=== PATIENT | female | born 1985 | race American Indian/Alaskan Native ===

== ENCOUNTER 2016-09-20 11:47 | Emergency (ER) | payer MEDICAID ==
[2016-09-20 12:04] VITALS: BP 123/80
== END 2016-09-20 17:10 | disposition left against medical advice (07) ==
LOC: ED 11:47
DX: R50.9 Fever, unspecified (principal); Z53.21 Procedure and treatment not carried out due to patient leaving prior to being seen by health care provider

== ENCOUNTER 2017-09-25 19:00 | Emergency (ER) | payer MEDICAID, OTHER ==
[2017-09-25 20:24] LABS: Alanine Aminotransferase 9 units/L (7-56); Albumin 4.4 g/dL (3.9-5); BUN/Creatinine Ratio 14; Blood Urea Nitrogen 13 mg/dL (7-17); Calcium 10.2 mg/dL (8.4-10.2); Hemolysis Index 27
[2017-09-25 21:10] LABS: Bilirubin,Urine NEG (Negative); Blood,Urine LG (Negative); Color,Urine Yellow (Yellow); Mucus,Urine FEW /HPF; Protein,Urine <15 mg/dL mg/dL (Negative); Urobilinogen,Urine < 2.0 mg/dL (<2.0)
[2017-09-25 21:18] LABS: Amphetamine Screen,Urine PRESUMPTIVE NEGATIVE; Cannabinoid Screen,Urine PRESUMPTIVE NEGATIVE; Methadone Screen,Urine PRESUMPTIVE NEGATIVE; Opiate Screen,Urine PRESUMPTIVE NEGATIVE
[2017-09-25 21:25] LABS: Hematocrit 44.1 % (30.3-42.9); Hemoglobin 14.6 gm/dl (10.1-14.3); Mean Corpuscular HGB Conc 33 % (30-34); Mean Corpuscular Hemoglobin 29 pg (28-32); Mean Corpuscular Volume 89 fl (79-97); Platelet Count 271 K/mm3 (140-440); Red Blood Count 4.95 M/mm3 (3.65-5.03); Red Cell Distribution Width 14.3 % (13.2-15.2)
--- NOTE | 2017-09-25 21:28 | Emergency Department Report ---
HPI - General Chief Complaint: Psych Time Seen by Provider: 09/25/17 21:02 - HPI HPI: Sosa [id number] The patient is a 31-year-old female presented with a chief complaint of suicidal ideation. The patient states she's had suicidal ideation for "a couple of weeks." The patient states "a couple days" ago she tried to kill himself by taking more than her usual amount of cocaine. Patient denies any other attempts at harming herself. Patient states she has a headache and feels anxious. Patient denies any history of fever Location: Mental state, see above Duration: "A couple of weeks" Quality: Suicidal Severity: Severe Modifying factors: [see above] Context: [see above] Mode of transportation: [not driving] ED Past Medical Hx - Past Medical History Hx Headaches / Migraines: Yes (migraines after epidural with del 01/18/15) Hx Psychiatric Treatment: Yes (depression) - Surgical History Additional Surgical History: Abdominal laparoscopy, tubal ligation - Family History Family history: no significant - Social History Smoking Status: Never Smoker Substance Use Type: Alcohol (occasional), Cocaine (last used yesterday) - Medications Home Medications: Home Medications Medication Instructions Recorded Confirmed Last Taken Type Cephalexin [Keflex] 500 mg PO Q12HR #20 cap 11/28/14 Unknown Rx Pnv,Calcium 72/Iron,Carb/Folic 1 PO DAILY 11/28/14 11/28/14 1 Week Ago History [ Plus Iron Tablet] ~11/21/14 1 Zolpidem [Ambien] 1 PO HS PRN 11/28/14 11/28/14 2 Days Ago History ~11/26/14 10 mgs Pnv,Calcium 72/Iron,Carb/Folic 1 tab PO DAILY 02/22/15 02/22/15 Unknown History [ Plus Iron Tablet] Zolpidem [Ambien] 10 mg PO QHS 02/22/15 02/22/15 Unknown History Ibuprofen [Motrin] 600 mg PO Q6H PRN #30 tablet 02/27/15 Unknown Rx oxyCODONE /ACETAMINOPHEN [Percocet 1 tab PO Q6HR PRN #30 tablet 02/27/15 Unknown Rx 5/325] ED Review of Systems ROS: Stated complaint: DEPRESSION SUICDIAL Other details as noted in HPI Constitutional: denies: fever Eyes: denies: eye pain ENT: denies: throat pain Cardiovascular: denies: chest pain Endocrine: denies: unexplained weight loss Gastrointestinal: denies: abdominal pain Genitourinary: denies: dysuria Musculoskeletal: denies: back pain Skin: denies: change in color Neurological: headache Psychiatric: suicidal thoughts Physical Exam - Physical Exam Vital Signs: Vital Signs 09/25/17 09/25/17 19:14 19:22 Temperature 99.0 F 99.0 F Pulse Rate 62 69 Respiratory 18 18 Rate Blood Pressure 153/99 153/99 O2 Sat by Pulse 100 100 Oximetry Physical Exam: GENERAL: The patient is well-developed well-nourished female sitting on stretcher not appearing to be in acute distress. [] HEENT: Normocephalic. Atraumatic. Extraocular motions are intact. Patient has moist mucous membranes. NECK: Supple. No meningitic signs are noted. There is no adenopathy noted. CHEST/LUNGS: Clear to auscultation. There is no respiratory distress noted. HEART/CARDIOVASCULAR: Regular. There is no tachycardia. There is no gallop rub or murmur. ABDOMEN: Abdomen is soft, nontender. Patient has normal bowel sounds. There is no abdominal distention. SKIN: There is no rash. There is no edema. There is no diaphoresis. NEURO: The patient is awake, alert, and oriented. The patient is cooperative. The patient has no focal neurologic deficits. The patient has normal speech. Cranial nerves II through XII grossly intact, no drift MUSCULOSKELETAL: There is no evidence of acute injury. ED Course Vital Signs 09/25/17 09/25/17 19:14 19:22 Temperature 99.0 F 99.0 F Pulse Rate 62 69 Respiratory 18 18 Rate Blood Pressure 153/99 153/99 O2 Sat by Pulse 100 100 Oximetry ED Medical Decision Making - Lab Data Result diagrams: 09/25/17 21:08 09/25/17 21:08 Laboratory Tests 09/25/17 09/25/17 09/25/17 19:50 20:50 20:50 WBC RBC Hgb Hct MCV MCH MCHC RDW Plt Count Lymph % (Auto) [place] % (Auto) Eos % (Auto) Baso % (Auto) Lymph # [place] # Eos # Baso # Seg Neutrophils % Seg Neutrophils # Sodium 138 Potassium 4.3 Chloride 95.9 L Carbon Dioxide 25 Anion Gap 21 BUN 13 Creatinine 0.9 Estimated GFR > 60 BUN/Creatinine Ratio 14 Glucose 110 H Calcium 10.2 Total Bilirubin 0.40 AST 18 ALT 9 Alkaline Phosphatase 60 Total Protein 8.3 H Albumin 4.4 Albumin/Globulin Ratio 1.1 HCG, Qual Urine Color Yellow Urine Turbidity Clear Urine pH 6.0 Ur Specific [place] 1.019 Urine Protein <15 mg/dl Urine Glucose (UA) Neg Urine Ketones Neg Urine Blood Lg Urine Nitrite Neg Urine Bilirubin Neg Urine Urobilinogen < 2.0 Ur Leukocyte Esterase Neg Urine WBC (Auto) 5.0 Urine RBC (Auto) 46.0 U Epithel Cells (Auto) 1.0 Urine Mucus Few Salicylates Urine Opiates Screen Presumptive negative Urine Methadone Screen Presumptive negative Acetaminophen Ur Barbiturates Screen Presumptive negative Ur Phencyclidine Scrn Presumptive negative Ur Amphetamines Screen Presumptive negative U Benzodiazepines Scrn Presumptive positive Urine Cocaine Screen Presumptive positive U Marijuana (THC) Screen Presumptive negative Drugs of Abuse Note Disclamer Plasma/Serum Alcohol 09/25/17 09/25/17 09/25/17 21:08 21:08 21:08 WBC 9.6 RBC 4.95 Hgb 14.6 H Hct 44.1 H MCV 89 MCH 29 MCHC 33 RDW 14.3 Plt Count 271 Lymph % (Auto) [employer] [place] % (Auto) [employer] Eos % (Auto) [employer] Baso % (Auto) [employer] Lymph # [employer] [place] # [employer] Eos # [employer] Baso # [employer] Seg Neutrophils % [employer] Seg Neutrophils # [employer] Sodium 139 Potassium 3.9 Chloride 94.8 L Carbon Dioxide 29 Anion Gap 19 BUN 13 Creatinine 0.9 Estimated GFR > 60 BUN/Creatinine Ratio 14 Glucose 100 Calcium 10.1 Total Bilirubin AST ALT Alkaline Phosphatase Total Protein Albumin Albumin/Globulin Ratio HCG, Qual Urine Color Urine Turbidity Urine pH Ur Specific [place] Urine Protein Urine Glucose (UA) Urine Ketones Urine Blood Urine Nitrite Urine Bilirubin Urine Urobilinogen Ur Leukocyte Esterase Urine WBC (Auto) Urine RBC (Auto) U Epithel Cells (Auto) Urine Mucus Salicylates < 0.3 L Urine Opiates Screen Urine Methadone Screen Acetaminophen Ur Barbiturates Screen Ur Phencyclidine Scrn Ur Amphetamines Screen U Benzodiazepines Scrn Urine Cocaine Screen U Marijuana (THC) Screen Drugs of Abuse Note Plasma/Serum Alcohol 09/25/17 09/25/17 09/25/17 21:08 21:08 21:08 WBC RBC Hgb Hct MCV MCH MCHC RDW Plt Count Lymph % (Auto) [place] % (Auto) Eos % (Auto) Baso % (Auto) Lymph # [place] # Eos # Baso # Seg Neutrophils % Seg Neutrophils # Sodium Potassium Chloride Carbon Dioxide Anion Gap BUN Creatinine Estimated GFR BUN/Creatinine Ratio Glucose Calcium Total Bilirubin AST ALT Alkaline Phosphatase Total Protein Albumin Albumin/Globulin Ratio HCG, Qual Negative Urine Color Urine Turbidity Urine pH Ur Specific [place] Urine Protein Urine Glucose (UA) Urine Ketones Urine Blood Urine Nitrite Urine Bilirubin Urine Urobilinogen Ur Leukocyte Esterase Urine WBC (Auto) Urine RBC (Auto) U Epithel Cells (Auto) Urine Mucus Salicylates Urine Opiates Screen Urine Methadone Screen Acetaminophen < 5.0 L Ur Barbiturates Screen Ur Phencyclidine Scrn Ur Amphetamines Screen U Benzodiazepines Scrn Urine Cocaine Screen U Marijuana (THC) Screen Drugs of Abuse Note Plasma/Serum Alcohol < 0.01 - Differential Diagnosis suicidal ideation, cocaine abuse Critical care attestation.: If time is entered above; I have spent that time in minutes in the direct care of this critically ill patient, excluding procedure time. ED Disposition Clinical Impression: Suicidal ideation, Cocaine abuse Disposition: [id number]/TX-[id number] PSY HOSP/PSY UNIT Is pt being admited?: No Does the pt Need Aspirin: No Condition: Serious Referrals: LISA HDZ MD [Primary Care Provider] - 3-5 Days Time of Disposition: 22:29 (awaiting acceptance)
[2017-09-25 21:38] LABS: BUN/Creatinine Ratio 14; Blood Urea Nitrogen 13 mg/dL (7-17); Calcium 10.1 mg/dL (8.4-10.2); Hemolysis Index 10
[2017-09-25 22:07] LABS: Benzodiazepines Screen,Urine PRESUMPTIVE POSITIVE; Cocaine Screen,Urine PRESUMPTIVE POSITIVE
[2017-09-25] MEDS ORDERED: FIORICET PO ONE (22:30)
[2017-09-26] MEDS ORDERED: ATIVAN IM ONE (03:35)
[2017-09-26] MEDS ORDERED: ATIVAN ONE ×2 (03:36→22:40)
[2017-09-26] MEDS ORDERED: ATIVAN PO ONE (21:00)
--- NOTE | 2017-09-26 23:56 | Consultation ---
History of Present Illness - Reason for Consult Consult date: 09/26/17 Reason for consult: psychiatric evaluation - Chief Complaint Chief complaint: "I am withdrawing from suboxone." - History of Present Psychiatric Illness Jennifer Cobb is a 31-year-old female presented with a chief complaint of suicidal ideation. Per the record, the patient states she's had suicidal ideation for "a couple of weeks." The patient states "a couple days" ago she tried to kill himself by taking more than her usual amount of cocaine. She denies suicidal ideation during the psychiatric evaluation. She denies mood or psychotic symptoms. She reports taking xanax 1mg daily prn for anxiety. She states she has panic attacks. She reports having opiate withdrawals due to coming off suboxone. She states she takes 8mg daily. She was at [facility] 2 weeks ago and left to make sure her children were with her mother. She states 40 family/friends had an intervention for her prior to going to [facility]. She was vague in saying why they would hold an intervention for her. The drug monitoring database indicates she has been on suboxone and xanax for at least a year. She denies using other substances with the exception of telling the staff she used cocaine. She denies use of cocaine on interview. She states the intervention was done because they saw she was using but had been doing well for a long time prior. Medications and Allergies Allergies Allergy/AdvReac Type Severity Reaction Status Date / Time No Known Allergies Allergy Verified 09/25/17 19:22 Home Medications Medication Instructions Recorded Confirmed Last Taken Type Cephalexin [Keflex] 500 mg PO Q12HR #20 cap 11/28/14 09/26/17 Unknown Rx Pnv,Calcium 72/Iron,Carb/Folic 1 mg PO DAILY 11/28/14 09/26/17 1 Week Ago History [ Plus Iron Tablet] ~11/21/14 1 Zolpidem [Ambien] 10 mg PO HS PRN 11/28/14 09/26/17 2 Days Ago History ~11/26/14 10 mgs Pnv,Calcium 72/Iron,Carb/Folic 29 mg PO DAILY 02/22/15 09/26/17 Unknown History [ Plus Iron Tablet] Zolpidem [Ambien] 10 mg PO QHS 02/22/15 09/26/17 Unknown History Ibuprofen [Motrin] 600 mg PO Q6H PRN #30 tablet 02/27/15 09/26/17 Unknown Rx oxyCODONE /ACETAMINOPHEN [Percocet 1 tab PO Q6HR PRN #30 tablet 02/27/15 Unknown Rx 5/325] Past psychiatric history - Past Medical History Past Medical History: migraines Past Surgical History: Other ( Abdominal laparoscopy, tubal ligation) - past Psychiatric treatment and history Psych: Anxiety, Addictions psychiatric treatment history: She states she was at [facility] for 2 weeks and left to make sure her children were in a stable living arrangement. They are with her mother. she reports being hospitalized previously. "I had to say I was suicidal." she denies a history of suicide attempts. She is prescribed xanax 1mg daily prn for anxiety (confirmed in the drug monitoring database) She states she takes suboxone 8mg daily. Although it appears she is buying only a few at a time from the pharmacy. She has a history of heroin addiction and then had 8 years clean. When she had a tubal ligation, she started using pain pills and is now prescribed suboxone. - Social History Social history: lives with family (with mother and children) Mental Status Exam - Vital signs Last Vital Signs Temp 98.3 F 09/26/17 10:00 Pulse 98 H 09/26/17 10:00 Resp 18 09/26/17 10:00 BP 165/100 09/26/17 10:00 Pulse Ox 100 09/26/17 10:00 - Exam Orientation: time, place, person Affect: anxious Mood: congruent with affect Thought content: other (denies SI/HI. She told the ER staff she took too much cocaine in an attempt to harm herself) Thought Process: Intact Perceptions: none Speech: normal rate and pattern Concentration: focused Motor activity: normal Level of consciousness: alert Memory: Intact Sleep Symptoms: Insomnia, Restless Appetite: decreased Interaction: cooperative Results Result Diagrams: 09/25/17 21:08 09/25/17 21:08 All other labs normal. Assessment and Plan Assessment and plan: Impression: questionable suicide attempt by using too much cocaine. opioid use disorder, prescribed suboxone 8mg daily anxiety disorder unspecified-prescribed xanax 1mg daily and states she takes it sparingly. r/o panic disorder vs. substance induced anxiety disorder Her primary complaint is opiate withdrawals: chills, abdominal cramps, body aches, diarrhea Recommendation: Continue 1013 and reevaluate to determine suicide risk in 24 hours. She would benefit from [facility] rehab. Monitor for benzo withdrawals, but IF her statement is accurate, she is at low risk of benzo withdrawals. clonidine 0.1mg bid for opioid withdrawals. monitor vital signs. ativan 2mg po x 1 dose for acute anxiety/panic attack
[2017-09-27] MEDS ORDERED: CATAPRES PO SCH (01:00)
[2017-09-27] MEDS ORDERED: ATIVAN PO ONE ×2 (08:00→14:28)
[2017-09-27] MEDS: CATAPRES PO SCH ×3 (08:34→23:00)
[2017-09-27] MEDS: ROBAXIN PO SCH ×2 (11:08→23:00)
[2017-09-27] MEDS ORDERED: ATIVAN ONE (14:25)
--- NOTE | 2017-09-27 15:00 | Progress Note ---
Subjective - Reason for Consult Consult date: 09/27/17 Reason for consult: Psychiatry Follow-up - Chief Complaint Chief complaint: "Heltor" 31-year-old female presented with a chief complaint of suicidal ideation. Per the record, the patient states she's had suicidal ideation for "a couple of weeks." Today the patient is calm and cooperative during the assessment. She is adamant that she didn't tell the triage nurse that she was suicidal. She stated that she was suicidal several weeks ago when she was asked about being suicidal. She stated that she came to ER for medical clearance so she can enter into a detox program with [facility]. She denies SI/HI's and AVH's. She stated having body aches. Mental Status Exam - Vital signs Last Vital Signs Temp 98 F 09/27/17 07:00 Pulse 84 09/27/17 08:34 Resp 16 09/27/17 07:00 BP 123/90 09/27/17 08:34 Pulse Ox 99 09/27/17 07:00 - Exam Narrative exam: MSE: Appearance: calm, cooperative Behavior: regular eye contact Speech: regular rate and tone Mood: "okay" Affect: congruent to mood Thought Process: linear Thought Content: denies SI/HI's and AVH's Motor Activity: ambulatory Cognition: A/O x 3 Insight: fair Judgment: fair Assessment and Plan Impression: Questionable suicide attempt by cocaine use. Opioid Use DO. Unspecified Anxiety DO. Today the patient is calm and cooperative during the assessment. DDx: R/O Panic Attacks, R/O Substance Induced Anxiety DO Recommendation: Reevaluate 1013 in 24 hours. I called the patient's mother no answer. Will continue to try to gather collateral to help determine proper dispo. Continue Clonidine 0.1 mg PO for opioid withdrawals and start Robaxin 500 mg PO BID for body aches. Ativan 1 mg PO once for acute anxiety.
[2017-09-28 08:13] VITALS: BP 116/83
== END 2017-09-28 08:14 ==
LOC: EEVIPCON 19:00 → ED 19:00
DX: F14.10 Cocaine abuse, uncomplicated (principal); R45.851 Suicidal ideations; G43.909 Migraine, unspecified, not intractable, without status migrainosus; F32.9 Major depressive disorder, single episode, unspecified; Z98.51 Tubal ligation status
CPT/HCPCS: 36415; 80048; 80053; 80307; 81001; 84703; 85025; 96372; 99285; G0480; J2060; 80320

== ENCOUNTER 2018-11-16 11:40 | Emergency (ER) | payer MEDICAID ==
--- NOTE | 2018-11-16 11:51 | Event Note ---
ED Screening Note Date of service: 11/16/18 Time: 11:49 ED Screening Note: 33 y o female presents to ED stating while she was in shower her right shoulder popped out of placed October 04 This initial assessment/diagnostic orders/clinical plan/treatment(s) is/are subject to change based on patients health status, clinical progression and re- assessment by fellow clinical providers in the ED. Further treatment and workup at subsequent clinical providers discretion. Patient/guardian urged not to elope from the ED as their condition may be serious if not clinically assessed and managed. Initial orders include: xr shoulder
--- NOTE | 2018-11-16 12:08 | Emergency Department Report ---
ED Upper Extremity Inj HPI - General Chief Complaint: Extremity Injury, Upper Stated Complaint: POST SURGERY RT ARM OUT OF PLACE Time Seen by Provider: 11/16/18 12:07 Source: patient Mode of arrival: Ambulatory Limitations: No Limitations - History of Present Illness Initial Comments: Patient is a 33-year-old female that presents emergency room a complaints of right shoulder pain. Patient states her shoulder pain started yesterday. Patient states her shoulder dislocated yesterday at 11 AM. Patient's last intake at 10 AM yesterday. Patient states the pain is 10 out of 10. Patient states the pain is worse with movement and better with rest. Patient states the pain is nonradiating. Patient states she's had her arm in a sling for 2 months. Patient states she had surgery October 04 of this year. MD Complaint: Injury to:: right, shoulder -: Sudden Other Extremity Injury: Shoulder: Right Other Injuries: none Severity scale (0 -10): 10 Improves With: rest Worsens With: movement of extremity Context: other Associated Symptoms: denies: weakness, numbness, neck pain, suspects foreign body, nausea/vomiting, heard/felt popping sensat Treatments Prior to Arrival: splint - Related Data Home Medications Medication Instructions Recorded Confirmed Last Taken Eszopiclone [Lunesta] 3 mg PO 11/16/18 11/02/18 Allergies Allergy/AdvReac Type Severity Reaction Status Date / Time morphine Allergy Rash Verified 11/16/18 13:17 ED Review of Systems ROS: Stated complaint: POST SURGERY RT ARM OUT OF PLACE Other details as noted in HPI Constitutional: denies: chills, fever Eyes: denies: eye pain, eye discharge, vision change ENT: denies: ear pain, throat pain Respiratory: denies: cough, shortness of breath, wheezing Cardiovascular: denies: chest pain, palpitations Endocrine: no symptoms reported Gastrointestinal: denies: abdominal pain, nausea, diarrhea Genitourinary: denies: urgency, dysuria, discharge Musculoskeletal: denies: back pain, joint swelling, arthralgia Skin: denies: rash, lesions Neurological: denies: headache, weakness, paresthesias Psychiatric: denies: anxiety, depression Hematological/Lymphatic: denies: easy bleeding, easy bruising ED Past Medical Hx - Past Medical History Previous Medical History?: Yes Hx Hypertension: No Hx Congestive Heart Failure: No Hx Diabetes: No Hx Deep Vein Thrombosis: No Hx Renal Disease: No Hx Sickle Cell Disease: No Hx Headaches / Migraines: Yes (migraines after epidural with del 01/18/15) Hx Seizures: No Hx Psychiatric Treatment: Yes (depression) Hx Asthma: No Hx COPD: No Hx HIV: No - Surgical History Additional Surgical History: Abdominal laparoscopy, tubal ligation - Social History Smoking Status: Never Smoker Substance Use Type: None - Medications Home Medications: Home Medications Medication Instructions Recorded Confirmed Last Taken Type Eszopiclone [Lunesta] 3 mg PO 11/16/18 11/02/18 History ED Physical Exam - General Limitations: No Limitations General appearance: alert, in no apparent distress - Head Head exam: Present: atraumatic, normocephalic - Eye Eye exam: Present: normal appearance - ENT ENT exam: Present: mucous membranes moist - Neck Neck exam: Present: normal inspection - Respiratory Respiratory exam: Present: normal lung sounds bilaterally. Absent: respiratory distress - Cardiovascular Cardiovascular Exam: Present: regular rate, normal rhythm. Absent: systolic murmur, diastolic murmur, rubs, gallop - GI/Abdominal GI/Abdominal exam: Present: soft, normal bowel sounds - Extremities Exam Extremities exam: Present: normal inspection (except for right upper extremity. Right shoulder clearly dislocated) - Back Exam Back exam: Present: normal inspection - Neurological Exam Neurological exam: Present: alert, oriented X3 - Psychiatric Psychiatric exam: Present: normal affect, normal mood - Skin Skin exam: Present: warm, dry, intact, normal color. Absent: rash ED Course Vital Signs 11/16/18 11/16/18 11/16/18 11:48 13:18 13:27 Temperature 98.7 F Temperature [ 98.1 F Intra-Procedure ] Temperature [ 98.2 F Pre-Procedure] Pulse Rate 116 H Pulse Rate [ 78 Intra-Procedure ] Pulse Rate [Pre 78 -Procedure] Respiratory 16 Rate Respiratory 16 Rate [Intra- Procedure] Respiratory 18 Rate [Pre- Procedure] Blood Pressure 140/102 Blood Pressure 145/103 [Intra- Procedure] Blood Pressure 144/102 [Pre-Procedure] Blood Pressure [Right] O2 Sat by Pulse 99 Oximetry O2 Sat by Pulse 96 Oximetry [ Intra-Procedure ] O2 Sat by Pulse 98 Oximetry [Pre- Procedure] 11/16/18 11/16/18 11/16/18 13:42 13:45 13:52 Temperature 98.2 F Temperature [ Intra-Procedure ] Temperature [ Pre-Procedure] Pulse Rate 78 Pulse Rate [ 77 80 Intra-Procedure ] Pulse Rate [Pre -Procedure] Respiratory 16 Rate Respiratory 16 16 Rate [Intra- Procedure] Respiratory Rate [Pre- Procedure] Blood Pressure Blood Pressure 149/58 169/98 [Intra- Procedure] Blood Pressure [Pre-Procedure] Blood Pressure 169/104 [Right] O2 Sat by Pulse 98 Oximetry O2 Sat by Pulse 96 96 Oximetry [ Intra-Procedure ] O2 Sat by Pulse Oximetry [Pre- Procedure] 11/16/18 13:59 Temperature Temperature [ Intra-Procedure ] Temperature [ Pre-Procedure] Pulse Rate 87 Pulse Rate [ Intra-Procedure ] Pulse Rate [Pre -Procedure] Respiratory 16 Rate Respiratory Rate [Intra- Procedure] Respiratory Rate [Pre- Procedure] Blood Pressure Blood Pressure [Intra- Procedure] Blood Pressure [Pre-Procedure] Blood Pressure 185/107 [Right] O2 Sat by Pulse 98 Oximetry O2 Sat by Pulse Oximetry [ Intra-Procedure ] O2 Sat by Pulse Oximetry [Pre- Procedure] - Reevaluation(s) Reevaluation #1: I discussed the procedure with patient. Patient agrees to reduction and conscious sedation. Consent has been signed. Patient's last intake was yesterday at 10 AM. 11/16/18 12:49 Reevaluation #2: Patient given conscious sedation to reduce the right shoulder. Successful reduction patient patient given 10 mg of etomidate. See procedure notes. 11/16/18 13:26 shoulder dislocated again. Patient given this time 10 more milligrams of etomidate and 25 of propofol. Patient will have an x-ray. Patient placed immediately into a sling and swath 11/16/18 13:35 Reevaluation #3: X-ray shows the shoulder is still not reduce. I will page the patient's orthopedist at [facility], Dr. Uma Huffman. 11/16/18 13:46 Reevaluation #4: I discussed all results and plan of care with patient. Patient agrees with plan of care in transfer. Patient will be transferred via EMS to [facility]. She is back to baseline. She is complaining of severe pain and muscle tightness. Patient will be given 2 mg of IM and 0.5 mg of Dilaudid 11/16/18 15:01 - Consultations Consultation #1: [facility] transfer center consulted. I discussed the case with the patient's orthopedist Dr. Uma Huffman as she states to have the patient transferred to [facility] ER. 11/16/18 13:50 After multiple conversations with the transfer center and the patient's orthopedist the patient was finally accepted to be transferred to [facility]. The accepting ER physician is Dr. Nacho Nicholson. Patient will be transported via EMS to [facility] 11/16/18 15:01 - Moderate Sedation Indications: fracture/dislocation redu ASA Class: I Mallampati Airway Score: 1 Time of Last PO Intake: 10:00 (10 am yesterday) Preparation: data modeler applied, pulse oximeter, capnometry used, supplemental O2 applied, suction/airway equipment at bedside, IV secured IV Propofol Dose (mgs): 50 IV Etomidate Dose (mgs): 20 Complications: none Patient Tolerated Procedure: well, no complications Additional Comments: Patient had 2 separate sets of medications due to shoulder dislocating after the initial reduction. Patient on the first reduction was given 10 mg of etomidate. On the second reduction patient was given 50 mg of propofol and 10 mg of etomidate - Orthopedic Joint Reduction Joint #1 Consent Obtained: verbal consent, written consent, emergent situation Time Out Performed: Yes Side: right Joint Reduction Location: shoulder Analgesia: moderate sedation Shoulder Technique Used (if applicable): traction/counter-traction, external rotation Post-Reduction Neuro Exam: intact Post-Reduction Vascular Exam: intact Post Reduction X-Ray Obtained: Yes Post Reduction X-Ray Results: reduced Splint Applied: Yes Patient Tolerated Procedure: well, no complications ED Medical Decision Making - Radiology Data Radiology results: report reviewed, image reviewed interpreted by me: Both x-rays reviewed. First x-ray shows an anterior dislocation. Post reduction x-ray shows persistent anterior dislocation. RIGHT SHOULDER 2 VIEWS INDICATION / CLINICAL INFORMATION: Right shoulder pain/deformity COMPARISON: None available. FINDINGS: BONES / JOINT(S): The humeral head is displaced anteriorly and inferomedially in relationship to the glenoid. I see no evidence of fracture. No significant arthritis. SOFT TISSUES: No significant abnormality. ADDITIONAL FINDINGS: The visualized portion the right lung is clear. IMPRESSION: Anterior dislocation of the right shoulder. RIGHT SHOULDER 2 VIEWS INDICATION / CLINICAL INFORMATION: Right shoulder pain/deformity COMPARISON: None available. FINDINGS: BONES / JOINT(S): The humeral head is displaced anteriorly and inferomedially in relationship to the glenoid. I see no evidence of fracture. No significant arthritis. SOFT TISSUES: No significant abnormality. ADDITIONAL FINDINGS: The visualized portion the right lung is clear. IMPRESSION: Anterior dislocation of the right shoulder. - Medical Decision Making Patient is 33-year-old female that has emergency room with shoulder pain. Patient found to have a anterior shoulder dislocation. Patient recently had an orthopedic surgery done to the same shoulder. Patient's shoulder unable to be reduced. Patient will be transferred back to where she had surgery at [facility]. Patient accepted by the ER doctor at [facility]. I discussed this case with the patient's orthopedist, Dr. Huffman and [facility] transfer center as well as [facility]'s ER physician multiple times. Patient will be transferred via EMS to [facility]. X-rays done. - Differential Diagnosis shoulder dislocation. Shoulder pain. Persistent shoulder dislocation Critical Care Time: Yes Critical care attestation.: If time is entered above; I have spent that time in minutes in the direct care of this critically ill patient, excluding procedure time. Critical Care Time: 80 minutes ED Disposition Clinical Impression: Intractable pain Shoulder pain, right Qualifiers: Chronicity: acute Qualified Code(s): M25.511 - Pain in right shoulder Shoulder dislocation Qualifiers: Encounter type: initial encounter Laterality: right Qualified Code(s): S43.004A - Unspecified dislocation of right shoulder joint, initial encounter Disposition: DC/TX-70 ANOTHER TYPE HLTHCARE Is pt being admited?: No Does the pt Need Aspirin: No Condition: Stable Instructions: Moderate Sedation (ED) Time of Disposition: 15:11
--- NOTE | 2018-11-16 12:22 | XRay Report ---
RIGHT SHOULDER 2 VIEWS INDICATION / CLINICAL INFORMATION: Right shoulder pain/deformity COMPARISON: None available. FINDINGS: BONES / JOINT(S): The humeral head is displaced anteriorly and inferomedially in relationship to the glenoid. I see no evidence of fracture. No significant arthritis. SOFT TISSUES: No significant abnormality. ADDITIONAL FINDINGS: The visualized portion the right lung is clear. IMPRESSION: Anterior dislocation of the right shoulder. Signer Name: Torres Hernandez MD Signed: 11/16/2018 12:18 PM Workstation Name: [id number]
[2018-11-16] MEDS ORDERED: NACL 0.9% 1000 ML 1,000 ML IV ONE (12:47)
[2018-11-16] MEDS ORDERED: DIPRIVAN 10 MG/ML IV ONE ×2 (13:09→14:09)
[2018-11-16] MEDS ORDERED: AMIDATE IV ONE ×2 (13:12→14:09)
[2018-11-16] MEDS ORDERED: DILAUDID IV ONE ×2 (13:46→15:10)
--- NOTE | 2018-11-16 14:26 | XRay Report ---
RIGHT SHOULDER 2 VIEWS INDICATION / CLINICAL INFORMATION: Right shoulder dislocation post reduction. COMPARISON: Earlier today at 12:07 PM. FINDINGS: BONES / JOINT(S): The previously described anterior dislocation of the right shoulder is still presen t. No new abnormality is seen. SOFT TISSUES: No significant abnormality. ADDITIONAL FINDINGS: None. IMPRESSION: Persistent anterior dislocation of the right shoulder. Signer Name: Torres Hernandez MD Signed: 11/16/2018 2:21 PM Workstation Name: [id number]
[2018-11-16] MEDS ORDERED: VALIUM IV ONE (15:30)
[2018-11-16 16:57] VITALS: BP 139/88
== END 2018-11-16 16:58 | disposition other institution (70) ==
LOC: ED 11:40
DX: S43.004A Unspecified dislocation of right shoulder joint, initial encounter (principal); G89.4 Chronic pain syndrome; G43.909 Migraine, unspecified, not intractable, without status migrainosus; F32.9 Major depressive disorder, single episode, unspecified; Z88.5 Allergy status to narcotic agent; Z98.51 Tubal ligation status; X58.XXXA Exposure to other specified factors, initial encounter; Y93.89 Activity, other specified; Y92.89 Other specified places as the place of occurrence of the external cause; Y99.8 Other external cause status
CPT/HCPCS: 23650; 73030; 96374; 96375; 96376; 99291; 99292; J1170; J2704; J3360; J7030

== ENCOUNTER 2018-11-17 13:56 | Emergency (ER) | payer MEDICAID ==
--- NOTE | 2018-11-17 14:15 | Event Note ---
ED Screening Note Date of service: 11/17/18 Time: 14:12 ED Screening Note: pt returns stating she wasnt seen at [facility] after she was tranfered last night states shoulder popped out of place again This initial assessment/diagnostic orders/clinical plan/treatment(s) is/are subject to change based on patients health status, clinical progression and re- assessment by fellow clinical providers in the ED. Further treatment and workup at subsequent clinical providers discretion. Patient/guardian urged not to elope from the ED as their condition may be serious if not clinically assessed and managed. Initial orders include: xr
--- NOTE | 2018-11-17 14:58 | XRay Report ---
. RIGHT SHOULDER 4 VIEW(S) INDICATION / CLINICAL INFORMATION: disclocation COMPARISON: Right shoulder x-ray 11/16/2018 FINDINGS: The right humeral head has been relocated and now projects in expected position with respect to the g lenoid. Dedicated right shoulder MRI may be useful to evaluate for underlying labral tear. Signer Name: Tomás Marr MD Signed: 11/17/2018 2:54 PM Workstation Name: [id number]
--- NOTE | 2018-11-17 20:36 | XRay Report ---
RIGHT SHOULDER 2 VIEW(S) INDICATION / CLINICAL INFORMATION: poss dislocation COMPARISON: This study at 7:49 PM was compared to earlier study at 2:38 PM same day FINDINGS: The humeral head has redislocated anteriorly with respect to the glenoid since earlier study. Signer Name: Tomás Marr MD Signed: 11/17/2018 8:32 PM Workstation Name: [id number]
[2018-11-17] MEDS ORDERED: SUBLIMAZE IV ONE (20:50)
[2018-11-17] MEDS ORDERED: AMIDATE IV ONE (20:50)
--- NOTE | 2018-11-17 20:58 | Emergency Department Report ---
ED Upper Extremity Inj HPI - General Chief Complaint: Shoulder Injury Stated Complaint: RT SHOULDER DISLOCATED Time Seen by Provider: 11/17/18 14:12 Source: patient Mode of arrival: Ambulatory Limitations: No Limitations - History of Present Illness Initial Comments: 33-year-old female presents to ED with possible right shoulder dislocation. Patient has history of multiple shoulder dislocations. States her shoulder was dislocated for 1 month straight prior to having surgery on her rotator cuff on October 04. Patient reports her shoulder has dislocated 3 times since the surgery. Patient was seen here last night for shoulder dislocation. ED physician was unable to reduce her shoulder, so she was transferred to [facility] where her orthopedic surgeon jossue. Patient states she was not seen by her orthopedist, and was discharged from the ER without any intervention on her shoulder. Patient states her orthopedic surgeon, Dr. Huffman refuses to see her until she gets an MRI. However, patient states her insurance will not pay for an MRI until 2 more weeks, she states that her insurance says that it is too early to obtain an MRI since her surgery was last month. Patient states she has now fired Dr Huffman. States she made an appointment w/ Dr Yost for tomorrow morning. She was instructed to return to this ED for reduction of shoulder if it is dislocated. If it is dislocated, it has been out since yesterday. Patient now has her shoulder immobilizer from her surgery with her to apply following reduction. Believes that was the problem on yesterday. Complaint: Injury to:: right, shoulder -: days(s) (1) Other Injuries: none Improves With: immobilization Worsens With: movement of extremity Context: other (chronic condition) Treatments Prior to Arrival: other (immobilizer) - Related Data Home Medications Medication Instructions Recorded Confirmed Last Taken Eszopiclone [Lunesta] 3 mg PO 11/16/18 11/02/18 Allergies Allergy/AdvReac Type Severity Reaction Status Date / Time morphine Allergy Rash Verified 11/16/18 13:17 ED Review of Systems ROS: Stated complaint: RT SHOULDER DISLOCATED Other details as noted in HPI Comment: All other systems reviewed and negative Musculoskeletal: as per HPI ED Past Medical Hx - Past Medical History Previous Medical History?: Yes Hx Hypertension: No Hx Congestive Heart Failure: No Hx Diabetes: No Hx Deep Vein Thrombosis: No Hx Renal Disease: No Hx Sickle Cell Disease: No Hx Headaches / Migraines: Yes (migraines after epidural with del 01/18/15) Hx Seizures: No Hx Psychiatric Treatment: Yes (depression) Hx Asthma: No Hx COPD: No Hx HIV: No - Surgical History Past Surgical History?: Yes Additional Surgical History: Abdominal laparoscopy, tubal ligation - Social History Smoking Status: Never Smoker Substance Use Type: None - Medications Home Medications: Home Medications Medication Instructions Recorded Confirmed Last Taken Type Eszopiclone [Lunesta] 3 mg PO 11/16/18 11/02/18 History ED Physical Exam - General Limitations: No Limitations General appearance: alert, in no apparent distress - Head Head exam: Present: atraumatic, normocephalic - Eye Eye exam: Present: normal appearance, PERRL, EOMI - ENT ENT exam: Present: mucous membranes moist - Neck Neck exam: Present: normal inspection - Respiratory Respiratory exam: Present: normal lung sounds bilaterally. Absent: respiratory distress - Cardiovascular Cardiovascular Exam: Present: regular rate, normal rhythm - GI/Abdominal GI/Abdominal exam: Absent: distended - Extremities Exam Extremities exam: Present: other (deformity noted at right shoulder; pt in immobilizer) - Neurological Exam Neurological exam: Present: alert, oriented X3. Absent: motor sensory deficit - Psychiatric Psychiatric exam: Present: normal affect, normal mood - Skin Skin exam: Present: warm, dry, intact, normal color ED Course Vital Signs 11/17/18 11/17/18 11/17/18 14:08 18:48 21:37 Temperature 98.3 F Temperature [ Post-Procedure] Temperature [ 98.7 F Pre-Procedure] Pulse Rate 118 H Pulse Rate [ Intra-Procedure ] Pulse Rate [ Post-Procedure] Pulse Rate [Pre 80 -Procedure] Respiratory 16 16 Rate Respiratory Rate [Intra- Procedure] Respiratory Rate [Post- Procedure] Respiratory 18 Rate [Pre- Procedure] Blood Pressure 138/101 Blood Pressure [Intra- Procedure] Blood Pressure 158/107 [Left] Blood Pressure [Post-Procedure ] Blood Pressure 158/88 [Pre-Procedure] O2 Sat by Pulse 97 96 Oximetry O2 Sat by Pulse Oximetry [ Intra-Procedure ] O2 Sat by Pulse Oximetry [Post -Procedure] O2 Sat by Pulse 100 Oximetry [Pre- Procedure] 11/17/18 11/17/18 11/17/18 21:39 21:42 22:02 Temperature Temperature [ 98.7 F Post-Procedure] Temperature [ Pre-Procedure] Pulse Rate Pulse Rate [ 112 H Intra-Procedure ] Pulse Rate [ 103 H 100 H Post-Procedure] Pulse Rate [Pre -Procedure] Respiratory Rate Respiratory 16 Rate [Intra- Procedure] Respiratory 18 18 Rate [Post- Procedure] Respiratory Rate [Pre- Procedure] Blood Pressure Blood Pressure 146/84 [Intra- Procedure] Blood Pressure [Left] Blood Pressure 133/102 149/86 [Post-Procedure ] Blood Pressure [Pre-Procedure] O2 Sat by Pulse Oximetry O2 Sat by Pulse 100 Oximetry [ Intra-Procedure ] O2 Sat by Pulse 100 100 Oximetry [Post -Procedure] O2 Sat by Pulse Oximetry [Pre- Procedure] 11/17/18 11/17/18 22:13 22:20 Temperature Temperature [ Post-Procedure] Temperature [ Pre-Procedure] Pulse Rate Pulse Rate [ 88 Intra-Procedure ] Pulse Rate [ 84 Post-Procedure] Pulse Rate [Pre -Procedure] Respiratory Rate Respiratory 16 Rate [Intra- Procedure] Respiratory 18 Rate [Post- Procedure] Respiratory Rate [Pre- Procedure] Blood Pressure Blood Pressure 152/84 [Intra- Procedure] Blood Pressure [Left] Blood Pressure 147/93 [Post-Procedure ] Blood Pressure [Pre-Procedure] O2 Sat by Pulse Oximetry O2 Sat by Pulse 100 Oximetry [ Intra-Procedure ] O2 Sat by Pulse 100 Oximetry [Post -Procedure] O2 Sat by Pulse Oximetry [Pre- Procedure] - Moderate Sedation Indications: fracture/dislocation redu ASA Class: I Mallampati Airway Score: 2 Preparation: manager cardiac cath applied, pulse oximeter, capnometry used, supplemental O2 applied, suction/airway equipment at bedside, IV secured Fentanyl: IV Fentanyl Dose: 50 IV Propofol Dose (mgs): 100 IV Etomidate Dose (mgs): 17 Complications: none Patient Tolerated Procedure: well - Orthopedic Joint Reduction Joint #1 Consent Obtained: written consent Time Out Performed: Yes Side: right Joint Reduction Location: shoulder Analgesia: moderate sedation Shoulder Technique Used (if applicable): external rotation Post-Reduction Neuro Exam: intact Post-Reduction Vascular Exam: intact Post Reduction X-Ray Obtained: Yes Post Reduction X-Ray Results: not reduced (with subluxation) Patient Tolerated Procedure: other (shoulder not reduced) Joint #2 Consent Obtained: written consent Time Out Performed: Yes Side: right Joint Reduction Location: shoulder Analgesia: moderate sedation Shoulder Technique Used (if applicable): Sunil Post-Reduction Neuro Exam: intact Post-Reduction Vascular Exam: intact Post Reduction X-Ray Obtained: Yes Post Reduction X-Ray Results: other (with subluxation) Splint Applied: Yes (shoulder immobilizer) Patient Tolerated Procedure: well ED Medical Decision Making - Radiology Data Radiology results: report reviewed, image reviewed - Medical Decision Making Initial shoulder film read as normal, but on exam pt appeared to have deformity and pt stated that she felt as if it was dislocated. Pt requested repeat xray and repeat film did show a dislocation. Pt was sedation twice, first with fentanyl 50 mcg and etomidate 7 mg. Repeat film showed persistent dislocation. Attempted sedation again using propofol. Pt received 100 mg and was not sedated whatsoever. Pt was then given 1 mg dilaudid and 10 mg etomidate which achieved appropriate sedation. Reduction was again attempted. Afterward no deformity noted on exam. Pt reported that it feels as if it may be in place as her pain is much improved. Xray shows subluxation but I believe it is reduced. Pt has had 3 dislocations since her shoulder surgery last month and was dislocated yesterday and into today. Rotator cuff is definitely compromised. Pt reports that she has an appt w/ Dr Yost in the AM. Pt placed in her shoulder immobilizer and d/c'd home. - Differential Diagnosis fracture, dislocation, subluxation Critical Care Time: Yes Critical care time in (mins) excluding proc time.: 35 Critical care attestation.: If time is entered above; I have spent that time in minutes in the direct care of this critically ill patient, excluding procedure time. Critical Care Time: 35 minutes ED Disposition Clinical Impression: Shoulder dislocation Disposition: DC-01 TO HOME OR SELFCARE Is pt being admited?: No Condition: Stable Instructions: Shoulder Dislocation (ED) Referrals: ASHLEY YOST MD [Staff Physician] - 11/18/18 Time of Disposition: 23:40
[2018-11-17] MEDS ORDERED: DIPRIVAN 10 MG/ML IV ONE (21:54)
[2018-11-17] MEDS ORDERED: DILAUDID IV ONE ×2 (22:06→23:23)
--- NOTE | 2018-11-17 23:16 | XRay Report ---
. RIGHT SHOULDER 1 VIEW(S) 9:41 PM INDICATION / CLINICAL INFORMATION: post-reduction COMPARISON: Right shoulder x-ray 7:49 PM same day FINDINGS: The humeral head remains dislocated anteriorly with respect to the glenoid Signer Name: Tomás Marr MD Signed: 11/17/2018 11:12 PM Workstation Name: [id number]
--- NOTE | 2018-11-17 23:16 | XRay Report ---
Right SHOULDER 1 VIEW(S) 10:19 PM same day INDICATION / CLINICAL INFORMATION: post-reduction COMPARISON: Right shoulder x-ray 9:41 PM same day FINDINGS: Humeral head is probably subluxed anteriorly. Recommend dedicated axillary view for further evaluatio n and/or CT Signer Name: Tomás Marr MD Signed: 11/17/2018 11:11 PM Workstation Name: [id number]
[2018-11-17 23:19] VITALS: BP 147/93
== END 2018-11-18 00:05 | disposition home or self-care (01) ==
LOC: ED 13:56
DX: S43.014A Anterior dislocation of right humerus, initial encounter (principal); X58.XXXA Exposure to other specified factors, initial encounter; Y93.89 Activity, other specified; Y92.89 Other specified places as the place of occurrence of the external cause; Y99.8 Other external cause status; G43.909 Migraine, unspecified, not intractable, without status migrainosus; F32.9 Major depressive disorder, single episode, unspecified; Z98.890 Other specified postprocedural states; Z98.51 Tubal ligation status; Z88.6 Allergy status to analgesic agent; Z79.899 Other long term (current) drug therapy
CPT/HCPCS: 23650; 73020; 73030; 96374; 96376; 99291; J1170; J2704; J3010; 96375

== ENCOUNTER 2018-12-26 18:18 | Emergency (ER) | payer MEDICAID ==
--- NOTE | 2018-12-26 18:56 | Emergency Department Report ---
Blank Doc - Documentation Documentation: 33-year-old female that presents with right shoulder pain with history of disl ocation. This initial assessment/diagnostic orders/clinical plan/treatment(s) is/are subject to change based on patient's health status, clinical progression and re- assessment by fellow clinical providers in the ED. Further treatment and workup at subsequent clinical providers discretion. Patient/guardians urged not to elope from the ED as their condition may be serious if not clinically assessed and managed. Initial orders include: 1- Patient sent to [facility] for further evaluation and treatment 2- xrays
== END 2018-12-26 19:53 | disposition left against medical advice (07) ==
LOC: ED 18:18
DX: M25.511 Pain in right shoulder (principal); Z53.21 Procedure and treatment not carried out due to patient leaving prior to being seen by health care provider

== ENCOUNTER 2020-06-25 11:23 | Emergency (ER) | payer MEDICAID ==
--- NOTE | 2020-06-25 11:46 | Event Note ---
ED Screening Note ED Screening Note: pt states she presents for right shoulder dislocation that occurred today reports her son was jumping on her states she was at [facility] in [place] and reports she had XRs and was advised to present to the ER This initial assessment/diagnostic orders/clinical plan/treatment(s) is/are subject to change based on patients health status, clinical progression and re- assessment by fellow clinical providers in the ED. Further treatment and workup at subsequent clinical providers discretion. Patient/guardian urged not to elope from the ED as their condition may be serious if not clinically assessed and managed. Initial orders include: XR right shoulder
--- NOTE | 2020-06-25 12:26 | XRay Report ---
RIGHT SHOULDER 3 VIEWS INDICATION / CLINICAL INFORMATION: possible right shoulder dislocation COMPARISON: None available. FINDINGS: BONES / JOINT(S): Subcoracoid dislocation. No bony injury identified. SOFT TISSUES: No significant abnormality. ADDITIONAL FINDINGS: None. Signer Name: Kunal Kuhn MD Signed: 06/25/2020 12:21 PM Workstation Name: [id number]
[2020-06-25] MEDS ORDERED: ONDANSETRON 4 MG/2 ML INJ IV ONE (13:24)
[2020-06-25] MEDS ORDERED: KETAMINE 500 MG/5 ML VIAL MDV IV ONE (13:24)
[2020-06-25] MEDS ORDERED: propofoL 200 MG/20 ML VIAL IV ONE (13:24)
[2020-06-25] MEDS ORDERED: SODIUM CHLORIDE 0.9% 500 ML 500 ML IV ONE (13:24)
--- NOTE | 2020-06-25 13:30 | Emergency Department Report ---
Upper Extremity - HPI Chief Complaint: Shoulder Injury Stated Complaint: RT ARM INJURY Time Seen by Provider: 06/25/20 11:44 Upper Extremity: Right Shoulder Occurred When: 1 Day Mechanism: Twist Severity: severe Symptoms: Yes Pain with Movement, Yes Deformity, Yes Limited Range of Movement, No Numbness, No Weakness, No Swelling, No Bruising/Ecchymosis, No Laceration or Abrasion Other History: The patient was evaluated in the emergency department for symptoms described in the history of present illness. He/she was evaluated in the context of the global COVID-19 pandemic, which necessitated consideration that the patient might be at risk for infection with the virus that causes COVID-19. Institutional protocols and algorithms that pertain to the evaluation of patients at risk for COVID-19 are in a state of rapid change based on information released by regulatory bodies including the CDC and federal and state organizations. These policies and algorithms were followed during the patient's care in the emergency department. Please note that these policies, procedures and recommendations changed on a rapid basis. The patient is a 34-year-old female. She is not known to myself previously. She is right-hand dominant. She states that she is not . She has a history of several shoulder dislocations. She presents to the ER today with a complaint of recurrent right-sided shoulder dislocation. She reports the dislocation happened yesterday. She reports her young child was jumping, and grabbed her arm, and dislocated her arm. She reports seeing her sports physician at [facility], who attempted manual reduction, but was unsuccessful, secondary to "my arm spasming up." The patient reports that she was not able to seek medical attention last night because she has young children at home, and she did not want to bring them to the emergency room "to get Covid." The patient has not eaten since last night. The patient has no additional injuries or complaints. ED Review of Systems ROS: Stated complaint: RT ARM INJURY Other details as noted in HPI Constitutional: denies: fever Eyes: denies: eye discharge ENT: denies: epistaxis Respiratory: denies: shortness of breath Cardiovascular: denies: chest pain Gastrointestinal: denies: abdominal pain Musculoskeletal: arthralgia, myalgia Neurological: denies: weakness ED Past Medical Hx - Past Medical History Hx Hypertension: No Hx Congestive Heart Failure: No Hx Diabetes: No Hx Deep Vein Thrombosis: No Hx Renal Disease: No Hx Sickle Cell Disease: No Hx Headaches / Migraines: Yes (migraines after epidural with del 01/18/15) Hx Seizures: No Hx Psychiatric Treatment: Yes (depression) Hx Asthma: No Hx COPD: No Hx HIV: No - Surgical History Additional Surgical History: Abdominal laparoscopy, tubal ligation - Social History Smoking Status: Never Smoker Substance Use Type: None - Medications Home Medications: Home Medications Medication Instructions Recorded Confirmed Last Taken Type Eszopiclone [Lunesta] 3 mg PO 11/16/18 11/02/18 History Ibuprofen [Motrin] 600 mg PO Q8H PRN #30 tablet 06/25/20 Unknown Rx oxyCODONE /ACETAMINOPHEN [Percocet 1 tab PO Q6HR PRN #12 tablet 06/25/20 Unknown Rx 5/325] Upper Extremity Exam - Exam General: Vital signs noted. No distress. Alert and acting appropriately. No facial droop. Tongue midline. Extraocular movements intact bilaterally. Facial sensation intact to light touch in V1, V2, V3 distribution bilaterally. 5 and a 5 strength in 4 extremities. Sensation intact to light touch in 4 extremities. 2+ pulses noted in the bilateral upper and lower extremities. There is no palpable cord. negative Homans sign. Muscular compartments are soft. The pelvis is stable. There is a palpable deformity in the right shoulder. Sensation is intact to light touch in the bilateral deltoid, median, radial, ulnar distribution. Head and Torso: No HEENT Abnormality, No Neck Tenderness, No Chest/Lungs Abnormality, No Abdominal Tenderness, No Back Tenderness Shoulder Exam: Yes Shoulder Tenderness (Right shoulder tender), Yes Normal Range of Motion in Shoulder (Normal range of motion in the left shoulder. Right shoulder deformed), Yes Shoulder Deformity (Right shoulder deformed. Left shoulder within normal limit), No Clavicle Tenderness, No AC Joint Tenderness Arm Exam: No Arm/Humerus Tenderness, No Arm Deformity Elbow: Yes Normal Range of Motion in Elbow, No Elbow Tenderness, No Elbow Deformity Forearm: No Forearm Tenderness, No Forearm Deformity, No Pain with Pronation, No Pain with Supination Wrist: Yes Normal ROM in Wrist, No Wrist Tenderness, No Wrist Deformity, No Snuffbox Tenderness, No Pain with Axial Thumb Compression Hand: Yes Normal ROM in Digit(s), No Hand Tenderness, No Hand Deformity, No Digit Tenderness, No Digit(s) Deformity, No Tendon Dysfunction CMS Exam: Yes Normal Distal Pulses, Yes Normal Capillary Refill, Yes Normal Distal Sensation, No Broken Skin ED Course Vital Signs 06/25/20 06/25/20 11:41 11:42 Temperature 98.2 F Pulse Rate 103 H Respiratory 22 Rate Blood Pressure 139/96 O2 Sat by Pulse 98 Oximetry - Reevaluation(s) Reevaluation #1: 06/25/20 13:27 Differential diagnosis, including but not limited to: Recurrent shoulder dislocation Assessment and plan: 34-year-old female, who was afebrile, with reassuring vital signs, who is clinically sober, with a GCS of 15, who has not eaten since last night, who reports that she is not , who presents with recurrent shoulder dislocation since last night. Patient does not want intra-articular injection, nor did she want to lay on her abdomen/leg prone, and attempts at weight reduction. She requests sedation, and closed reduction. I have discussed the risks, benefits, alternatives. Patient reports that she has been sedated "7 times", and reports no adverse events in the past. Patient counseled that once that she is reduced, she will need to remain in a shoulder sling, and follow-up closely with her outpatient sports orthopedic physician. Patient understands that she will likely need to participate in physical therapy, and will likely require outpatient MRI to evaluate for soft tissue injury. She has provided verbal and written informed consent for moderate sedation with closed reduction 06/25/20 17:11 Shoulder successfully reduced. Please note that patient had a prolonged stay in the emergency department because she was a very difficult IV stick, and ultimately required assistance from the ultrasound-guided IV team to establish IV access. Patient was successfully reduced and she remains neurovascularly intact post procedurally. Patient reports having persistent shoulder pain and reports she can tolerate Percocet. She is also given hydromorphone 0.25 mg in the ER, for breakthrough pain. Patient again counseled that she will likely require physical therapy, and outpatient MRI. Patient understands that she most likely has connective tissue/soft tissue damage to the rotator cuff. She is going to have a family member come by and pick her up. - Moderate Sedation Indications: fracture/dislocation redu ASA Class: II Mallampati Airway Score: 1 Time of Last PO Intake: 00:00 (last ate last night) Preparation: threat monitoring analyst applied, pulse oximeter, capnometry used, supplemental O2 applied, suction/airway equipment at bedside Ketamine: IV Ketamine Dose: 100 IV Propofol Dose (mgs): 70 Complications: none Patient Tolerated Procedure: well - Orthopedic Joint Reduction Joint #1 Consent Obtained: verbal consent, written consent, emergent situation Time Out Performed: Yes Side: right Joint Reduction Location: shoulder Analgesia: moderate sedation Shoulder Technique Used (if applicable): scapula manipulation Technique Used: direct manipulation Post-Reduction Neuro Exam: intact Post-Reduction Vascular Exam: intact Post Reduction X-Ray Obtained: Yes Post Reduction X-Ray Results: reduced Splint Applied: Yes Patient Tolerated Procedure: well - Orthopedic Splinting/Casting Injury #1 Side: right Upper Extremity Injury Location: shoulder Upper Extremity Immobilizer: sling/shoulder immobilize ED Medical Decision Making - Lab Data Vital Signs 06/25/20 06/25/20 11:41 11:42 Temperature 98.2 F Pulse Rate 103 H Respiratory 22 Rate Blood Pressure 139/96 O2 Sat by Pulse 98 Oximetry - Radiology Data Radiology results: pending, report reviewed, image reviewed RIGHT SHOULDER 3 VIEWS INDICATION / CLINICAL INFORMATION: possible right shoulder dislocation COMPARISON: None available. FINDINGS: BONES / JOINT(S): Subcoracoid dislocation. No bony injury identified. SOFT TISSUES: No significant abnormality. ADDITIONAL FINDINGS: None. Signer Name: Kunal Kuhn MD Signed: 06/25/2020 11:21 AM Workstation Name: [id number] RIGHT SHOULDER 3 VIEW(S) 4:13 PM INDICATION / CLINICAL INFORMATION: shoulder post reduction COMPARISON: 12:02 PM FINDINGS: BONES / JOINT(S): Interval successful closed reduction of previously dislocated right shoulder. No fracture. SOFT TISSUES: No significant abnormality. ADDITIONAL FINDINGS: None. Signer Name: Kim Bhandari MD Signed: 06/25/2020 3:39 PM Workstation Name: [id number] Critical care attestation.: If time is entered above; I have spent that time in minutes in the direct care of this critically ill patient, excluding procedure time. ED Disposition Clinical Impression: Dislocation of right shoulder joint Qualifiers: Encounter type: initial encounter Qualified Code(s): S43.004A - Unspecified dislocation of right shoulder joint, initial encounter Disposition: TO HOME OR SELFCARE Is pt being admited?: No Does the pt Need Aspirin: No Condition: Good Instructions: Shoulder Dislocation, Moderate Conscious Sedation, Adult Additional Instructions: Please take the pain medications as needed and directed. If taking the Percocet, do not drive, consume alcohol, or make important decisions. Please follow-up as soon as possible with an outpatient orthopedic or sports medicine physician. With the recurrent prolonged shoulder dislocation, patient most likely has rotator cuff/soft tissue damage to the right shoulder joint capsule, will likely require extended physical therapy, plus minus MRI, at the discretion of your treating orthopedic physician. Patient may use the right hand, wrist and elbow for light duty, but should not use the right upper extremity for any heavy tasks or lifting, until cleared to do so by an orthopedic physician. Please have your primary care doctor or orthopedist contact the medical records department to obtain copies of x-ray studies. Please return to the emergency room right away with new pain, worsened pain, migration of pain, projectile vomiting, change in mental status, confusion, inability to tolerate liquid feeds, new, worsened or different symptoms not present on the initial emergency room evaluation. Recommend that patient not drive or operate motor vehicles for at least the next 12 hours. Prescriptions: Ibuprofen [Motrin] 600 mg PO Q8H PRN #30 tablet PRN Reason: Pain oxyCODONE /ACETAMINOPHEN [Percocet 5/325] 1 tab PO Q6HR PRN #12 tablet PRN Reason: Pain Referrals: [facility] [Provider Group] - 3-5 Days ASHLEY COWART MD [Staff Physician] - 3-5 Days Forms: Work/School Release Form(ED)
[2020-06-25] MEDS ORDERED: KETOROLAC 30 MG/1 ML INJ ONE (14:38)
[2020-06-25] MEDS ORDERED: KETOROLAC 30 MG/1 ML INJ IM ONE (14:39)
--- NOTE | 2020-06-25 16:44 | XRay Report ---
RIGHT SHOULDER 3 VIEW(S) 4:13 PM INDICATION / CLINICAL INFORMATION: shoulder post reduction COMPARISON: 12:02 PM FINDINGS: BONES / JOINT(S): Interval successful closed reduction of previously dislocated right shoulder. No fr acture. SOFT TISSUES: No significant abnormality. ADDITIONAL FINDINGS: None. Signer Name: Kim Bhandari MD Signed: 06/25/2020 4:39 PM Workstation Name: [id number]
[2020-06-25] MEDS ORDERED: HYDROmorphone 1 MG/1 ML INJ IV ONE (16:48)
[2020-06-25 16:58] VITALS: BP 165/102
== END 2020-06-25 17:55 | disposition home or self-care (01) ==
LOC: ED 11:23
DX: S43.004A Unspecified dislocation of right shoulder joint, initial encounter (principal); G43.909 Migraine, unspecified, not intractable, without status migrainosus; F32.9 Major depressive disorder, single episode, unspecified; Z79.899 Other long term (current) drug therapy; Z88.6 Allergy status to analgesic agent; X58.XXXA Exposure to other specified factors, initial encounter; Y93.89 Activity, other specified; Y92.89 Other specified places as the place of occurrence of the external cause; Y99.8 Other external cause status
CPT/HCPCS: 23650; 73030; 96372; 99283; J1170; J1885; J2405; J2704

== ENCOUNTER 2020-10-29 07:51 | Emergency (ER) | payer MEDICAID ==
[2020-10-29] MEDS ORDERED: SODIUM CHLORIDE 0.9% 1000 ML 1,000 ML IV ONE ×2 (08:20→09:24)
[2020-10-29] MEDS ORDERED: HYDROmorphone 1 MG/1 ML INJ IV ONE ×2 (08:20→10:01)
--- NOTE | 2020-10-29 08:22 | Emergency Department Report ---
HPI - General Chief Complaint: Shoulder Injury Time Seen by Provider: 10/29/20 08:21 - HPI HPI: 35-year-old female with history of multiple prior right shoulder dislocation status post surgery 2 years ago presents complaining of pain in her right shoulder typical of her shoulder dislocations suffered approximately 40 minutes prior to arrival. The patient states that she got up in the morning and was half-asleep walking to the bathroom when she accidentally hit her right shoulder on the door frame. She immediately had severe pain. She says the pain is exactly like previous times she is dislocated her shoulder but she was unable to move it back into place herself. She describes intense pain in her right shoulder. She denies any other associated symptoms whatsoever. She denies injury to any other part of her body. She has not tried any medications for it. The last thing she had to eat or drink was last night at 8 PM. She does think she may be dehydrated because she has had poor fluid intake over the past day. She denies any fever/chills, headache, vision change, back pain, chest pain, shortness of breath, abdominal pain, nausea/vomiting, focal weakness, numbness/paresthesias, vertigo, or any other complaints. Her LMP was approximately 1 month ago but she has a history of bilateral tubal ligation. She is vaccinated against COVID-19. ED Past Medical Hx - Past Medical History Previous Medical History?: Yes Hx Hypertension: No Hx Congestive Heart Failure: No Hx Diabetes: No Hx Deep Vein Thrombosis: No Hx Renal Disease: No Hx Sickle Cell Disease: No Hx Headaches / Migraines: Yes (migraines after epidural with del 01/18/15) Hx Seizures: No Hx Psychiatric Treatment: Yes (depression) Hx Asthma: No Hx COPD: No Hx HIV: No - Surgical History Past Surgical History?: Yes Additional Surgical History: Abdominal laparoscopy, tubal ligation, Right shoulder surgery - Social History Smoking Status: Never Smoker Substance Use Type: None - Medications Home Medications: Home Medications Medication Instructions Recorded Confirmed Last Taken Type Eszopiclone [Lunesta] 3 mg PO 11/16/18 11/02/18 History Ibuprofen [Motrin] 600 mg PO Q8H PRN #30 tablet 06/25/20 Unknown Rx oxyCODONE /ACETAMINOPHEN [Percocet 1 tab PO Q6HR PRN #12 tablet 06/25/20 Unknown Rx 5/325] ED Review of Systems ROS: Stated complaint: RT SHOULDER DISLOCATION Other details as noted in HPI Constitutional: denies: chills, fever Eyes: denies: eye pain, vision change ENT: denies: throat pain, congestion Respiratory: denies: cough, shortness of breath Cardiovascular: denies: chest pain, palpitations, syncope Gastrointestinal: denies: abdominal pain, nausea, vomiting, diarrhea Genitourinary: denies: dysuria, frequency Musculoskeletal: other (Right shoulder pain). denies: back pain, myalgia Skin: denies: rash, lesions Neurological: denies: headache, weakness, numbness, paresthesias, vertigo Psychiatric: denies: anxiety, depression Physical Exam - Physical Exam Vital Signs: Vital Signs 10/29/20 08:11 Temperature 98 F Pulse Rate 144 H Respiratory 20 Rate Blood Pressure 126/91 [Right] O2 Sat by Pulse 98 Oximetry Physical Exam: GENERAL: Well developed and well nourished. No acute distress HEAD: Normocephalic. No obvious signs of trauma. ENT: Dry mucous membranes. EYES: Extraocular movements are intact. Pupils are equal round and reactive to light bilaterally NECK: Supple. Full ROM is intact. Trachea is midline. LUNGS: Nonlabored breathing. Equal chest rise bilaterally. Clear to auscultation bilaterally. CARDIOVASCULAR: Tachycardic but with regular rhythm. No murmurs or rubs. VASCULAR: Cap refill < 2 seconds. 2+ peripheral pulses in all 4 extremities. ABDOMEN: Abdomen is soft and nondistended. There is no significant tenderness, guarding or rebound. SKIN: Skin is warm and dry NEURO: Patient is awake, alert, and oriented. machine group leader II-XII grossly intact. No focal deficits. Normal motor and sensory exam throughout. Normal speech. MUSCULOSKELETAL: The right shoulder is held abducted and has squaring off typical of anterior shoulder dislocation. Neurovascularly intact distally including all distributions of the median/ulnar/radial/axillary nerve distributions. Unable to assess range of motion at the right shoulder secondary to pain. Otherwise normal strength and ROM throughout. BACK/SPINE: No midline tenderness or step-offs of the C/T/L spine. No costove rtebral angle tenderness. ED Course Vital Signs 10/29/20 08:11 Temperature 98 F Pulse Rate 144 H Respiratory 20 Rate Blood Pressure 126/91 [Right] O2 Sat by Pulse 98 Oximetry - Moderate Sedation Indications: fracture/dislocation redu Mallampati Airway Score: 1 Time of Last PO Intake: 21:00 Preparation: virginia line attendant applied, pulse oximeter, capnometry used, supplemental O2 applied, suction/airway equipment at bedside, IV secured IV Propofol Dose (mgs): 120 Complications: none Patient Tolerated Procedure: well, no complications - Orthopedic Joint Reduction Joint #1 Consent Obtained: written consent Time Out Performed: Yes Side: right Joint Reduction Location: shoulder Analgesia: moderate sedation Shoulder Technique Used (if applicable): traction/counter-traction Post-Reduction Neuro Exam: intact Post-Reduction Vascular Exam: intact Post Reduction X-Ray Obtained: Yes Post Reduction X-Ray Results: reduced Patient Tolerated Procedure: well, no complications ED Medical Decision Making - Lab Data Result diagrams: 10/29/20 10:03 10/29/20 09:25 - Radiology Data Right shoulder 2 views INDICATION: Suspected dislocation FINDINGS: 2 views provided there appears to be dislocation/subluxation anteriorly. On the second image provided the humeral head projects overlying the glenoid. Additional views and follow-up recommended. Signer Name: iJmmie Roa MD Signed: 10/29/2020 8:59 AM Workstation Name: [id number] Right shoulder radiograph, 3 views HISTORY: Postreduction COMPARISON: Same-day radiograph from 9:28 AM. FINDINGS: Successful closed reduction of previously dislocated right shoulder. No evidence of fracture. Signer Name: Darell Guillen MD Signed: 10/29/2020 11:39 AM Workstation Name: [id number] - Medical Decision Making 35-year-old female with history of recurrent right shoulder dislocation presents with suspected right shoulder dislocation after accidentally hitting her shou lder on the door frame this morning after getting up to go to the bathroom. She denies trauma to any other part of the body. She does admit to being dehydrated. She is afebrile and with normal vital signs with the exception of elevated heart rate in the 140s. Physical examination reveals right shoulder which is held abducted and has squaring off typical of anterior shoulder dislocation. Neurovascularly intact distally including intact sensation in all median/ulnar/radial/axillary nerve distributions. She has very dry mucous membranes. I suspect that her heart rate may be partially due to pain as well as dehydration. We will give 2 L of IV fluid, 1 mg of Dilaudid, obtain labs and x-ray of the right shoulder to assess for dislocation. Multiple attempts were made to place an IV by several different nurses because of the patient's poor volume status this was delayed. At 8:58 AM, the patient's heart rate is noted to have come down to the 120s. At 9:28 AM, the patient's heart rate has now come down to the 100s. She said her pain is much better after the Dilaudid but still not completely gone. We will order an additional 1 mg of Dilaudid and prepare for conscious sedation for reduction of her dislocated right shoulder. X-ray shows evidence of anterior shoulder dislocation. Labs have resulted revealing no significant leukocytosis or anemia. However she does have elevated hemoglobin of 14.5 which is most consistent with hemoconcentration from poor volume status. Kidney function is normal and there are no significant electrolyte abnormalities. Given the patient's poor volume status we will continue to infuse IVFs to further stabilize the patient prior to conscious sedation. The patient's heart rate has gradually subsided into the normal range. Consents have been signed and the patient was explained the procedure along with its risks and benefits. Conscious sedation successfully performed at 11:48 AM and shoulder dislocation has been reduced. Patient has been placed into a shoulder immobilizer. We will obtain repeat x-ray for confirmation of successful reduction. Repeat x-ray confirms successful reduction. She is neurovascularly intact. She will follow up with orthopedic surgery. She will follow-up with a primary care doctor in the next few days. Return precautions have been given. Patient expressed understanding and agreement with this plan of care. Critical Care Time: Yes Critical care time in (mins) excluding proc time.: 40 Critical care attestation.: If time is entered above; I have spent that time in minutes in the direct care of this critically ill patient, excluding procedure time. Critical care time was spent in the evaluation/assessment, work-up, and management of anterior shoulder dislocation requiring multiple x-rays, interpretation of x-rays, interpretation of labs, IV fluids, pain medications, and frequent reevaluation and reassessment. ED Disposition Clinical Impression: Dislocation of right shoulder joint, Dehydration Disposition: - TO HOME OR SELFCARE Is pt being admited?: No Condition: Good Instructions: Shoulder Dislocation, Dehydration, Adult, [id number], Rehydration, Adult, How to Use a Shoulder Immobilizer Additional Instructions: Return to the emergency department should you develop worsening symptoms or any other new concerns. Please follow-up with an orthopedic surgeon in the next few days. Keep your shoulder immobilizer in place until directed otherwise by an orthopedic surgeon. Referrals: ASHLEY COWART MD [Staff Physician] - 3-5 Days
[2020-10-29 10:00] LABS: Alanine Aminotransferase 22 units/L (7-56); Blood Urea Nitrogen 8 mg/dL (7-17); Calcium 9.9 mg/dL (8.4-10.2); Hemolysis Index 26
[2020-10-29 10:01] LABS: BUN/Creatinine Ratio 11; Bilirubin,Direct < 0.2 mg/dL (0-0.2)
--- NOTE | 2020-10-29 10:03 | XRay Report ---
Right shoulder 2 views INDICATION: Suspected dislocation FINDINGS: 2 views provided there appears to be dislocation/subluxation anteriorly. On the second imag e provided the humeral head projects overlying the glenoid. Additional views and follow-up recommendshahnaz armstrong Signer Name: Jimmie Roa MD Signed: 10/29/2020 9:59 AM Workstation Name: [id number]
[2020-10-29 10:49] LABS: Hematocrit 43.3 % (30.3-42.9); Hemoglobin 14.5 gm/dl (10.1-14.3); Mean Corpuscular HGB Conc 34 % (30-34); Mean Corpuscular Volume 92 fl (79-97); Platelet Count 223 K/mm3 (140-440); Red Blood Count 4.69 M/mm3 (3.65-5.03); Red Cell Distribution Width 13.5 % (13.2-15.2)
[2020-10-29 10:53] LABS: INR 0.91 (0.87-1.13); Partial Thromboplastin Time 26.1 Sec. (24.2-36.6)
[2020-10-29] MEDS ORDERED: propofoL 200 MG/20 ML VIAL IV ONE ×2 (11:12→11:54)
--- NOTE | 2020-10-29 12:43 | XRay Report ---
Right shoulder radiograph, 3 views HISTORY: Postreduction COMPARISON: Same-day radiograph from 9:28 AM. FINDINGS: Successful closed reduction of previously dislocated right shoulder. No evidence of fractur e. Signer Name: Darell Guillen MD Signed: 10/29/2020 12:39 PM Workstation Name: [id number]
[2020-10-29 13:02] VITALS: BP 118/74
== END 2020-10-29 13:02 | disposition home or self-care (01) ==
LOC: ED 07:51
DX: S43.084A Other dislocation of right shoulder joint, initial encounter (principal); E86.0 Dehydration; G43.909 Migraine, unspecified, not intractable, without status migrainosus; F32.9 Major depressive disorder, single episode, unspecified; Z98.890 Other specified postprocedural states; X58.XXXA Exposure to other specified factors, initial encounter; Y93.89 Activity, other specified; Y92.89 Other specified places as the place of occurrence of the external cause; Y99.8 Other external cause status
CPT/HCPCS: 23650; 36415; 73030; 80048; 80076; 84443; 84703; 85025; 85610; 85730; 96361; 96374; 96375; 96376; 99284; J1170; J2704; J7030